=== PATIENT | female | born 1960 | race Caucasian/White ===

== ENCOUNTER 2017-05-27 05:48 | Day surgery (SDC) | payer OTHER ==
[2017-05-27] MEDS ORDERED: Versed 2 MG/2 ML Injection IV ONE ×2 (05:49)
[2017-05-27] MEDS ORDERED: DIPRIVAN 200 MG/20 ML IV ONE (05:49)
[2017-05-27] MEDS ORDERED: Lactated Ringers 1,000 ML IV SCH (06:30)
[2017-05-27 09:03] VITALS: O2SAT 98
--- NOTE | 2017-05-27 09:04 | OP ---
SURGERY DATE/TIME: 05/27/2017 0800 PREOPERATIVE DIAGNOSIS: Dysphagia. POSTOPERATIVE DIAGNOSIS: Gastric polyps. PROCEDURE: EGD. SURGEON: Aaron Cabrera M.D. ANESTHESIA: MAC by Shady Browne CRNA. ESTIMATED BLOOD LOSS: Minimal. SPECIMENS: Two cold forceps polypectomy. DESCRIPTION OF PROCEDURE: After informed written consent was obtained, the patient was taken to the endoscopy suite. She underwent monitored anesthesia and a bite block was inserted. The endoscope was inserted into the posterior oropharynx and under direct visualization the esophagus was easily traversed. There were no obvious mucosal abnormalities in the esophageal mucosa upon entry into the stomach. The stomach had a normal rugated gastric mucosa. There were scattered gastric polyps present. The gastric antrum inspected and noted to be within normal limits. The pylorus was traversed and the first and second portion of the duodenum was within normal limits. Two retail service representative gastric polyps were removed with cold forceps and sent for pathology. There was minimal blood loss related to the polypectomy sites. Upon withdrawal again the gastroesophageal junction esophageal mucosa had no obvious abnormalities. The scope was removed and the patient was transferred to the recovery room in good condition.
[2017-05-27 09:07] VITALS: BP 128/78; PULSE 80
== END 2017-05-27 09:06 | disposition home or self-care (01) ==
LOC: SDC 05:48
PROVIDERS: ATTEND Family Medicine
PROC: 0DB68ZX Excision of Stomach, Via Natural or Artificial Opening Endoscopic, Diagnostic (ICD-10-PCS; principal; 2017-05-27)
DX: K31.7 Polyp of stomach and duodenum (principal); R13.10 Dysphagia, unspecified; K21.9 Gastro-esophageal reflux disease without esophagitis
CPT/HCPCS: 00740; 88305; J2250; J2704